=== PATIENT | male | born 1980 | race Caucasian/White ===

== ENCOUNTER 2018-11-26 13:21 | Emergency (ER) | payer MEDICAID ==
[2018-11-26 18:32] LABS: URINE PH (Dip) POC 5.5 (5.0-8.5)
[2018-11-26 18:32] LABS: URINE BLOOD (Dip) POC Trace-intact (NEGATIVE); URINE GLUCOSE (Dip) POC Negative (NEGATIVE); URINE KETONES (Dip) POC Negative (NEGATIVE); URINE LEUKOCYTE EST (Dip) POC Negative (NEGATIVE); URINE NITRITE (Dip) POC Negative (NEGATIVE); URINE TOTAL PROTEIN POC Negative (NEGATIVE)
[2018-11-26] MEDS: KETOROLAC 30 MG INJ IM (18:40)
== END 2018-11-26 19:03 | disposition home or self-care (01) ==
LOC: FTE 13:21
DX: G44.209 Tension-type headache, unspecified, not intractable (principal)
CPT/HCPCS: 81003; 82962; 93005; 96372; 99284-25